=== PATIENT | female | born 1970 | race Caucasian/White ===

== ENCOUNTER 2020-07-19 15:47 | Emergency (ER) | payer OTHER ==
[~2020-07-19 15:47] MED LIST: DOXYCYCLINE HY100 MG PO; DUONEB 2.5-0.5M1 AMP IH; FERROUS SULFAT325 MG PO; MEDROL 4MG DOSEP4 MG PO; PROTONIX40 MG PO
[2020-07-19] MEDS ORDERED: NAPROXEN500 MG PO (17:54)
== END 2020-07-19 18:36 | disposition home or self-care (01) ==
LOC: FER 15:47
DX: S09.90XA Unspecified injury of head, initial encounter (principal); S40.012A Contusion of left shoulder, initial encounter; S30.1XXA Contusion of abdominal wall, initial encounter; M54.2 Cervicalgia; M25.551 Pain in right hip; J44.9 Chronic obstructive pulmonary disease, unspecified; F17.290 Nicotine dependence, other tobacco product, uncomplicated; Z79.899 Other long term (current) drug therapy; V22 Motorcycle rider injured in collision with two- or three-wheeled motor vehicle; Y92.410 Unspecified street and highway as the place of occurrence of the external cause; Z23 Encounter for immunization
CPT/HCPCS: 70450; 72125; 73030; 90471; 90715; 96372; J1100; J1885

== ENCOUNTER 2021-09-26 18:31 | Emergency (ER) | payer OTHER ==
[~2021-09-26 18:31] MED LIST changes: +NAPROXEN500 MG PO
[2021-09-26 19:06] LABS: BASOPHIL 0.3 % (0-2); HCT 45.7 % (37.0-47.0); HGB 14.5 g/dl (12.5-16.0); LYMPHOCYTE 32.6 % (15-48); MCH 29.9 pg (25.0-31.0); MCHC 31.7 g/dL (32.0-36.0); MCV 94.2 fL (78.0-100.0); MPV 10.3 fL (6.0-9.5); NEUTROPHIL 54.7 % (41-80); NRBC 0; PLT 301 K/uL (150-400); RBC 4.85 M/uL (4.20-5.40); WBC 7.1 K/uL (4.0-10.5)
[2021-09-26 19:16] LABS: INR 1.02 (0.9-1.2); PROTHROMBIN TIME 12.8 SECONDS (11.8-13.4); PTT 26.4 SECONDS (24.4-34.7)
[2021-09-26 19:37] LABS: ALBUMIN 4.1 g/dL (3.4-5.0); BILIRUBIN - TOTAL 0.2 mg/dL (0.2-1.0); BUN/CREAT RATIO (CALC) 10.6 RATIO; CREATININE 0.66 mg/dL (0.51-0.95); GLOBULIN (CALCULATION) 3.2 g/dL; POTASSIUM 3.5 mmol/L (3.5-5.1); TOTAL PROTEIN 7.3 g/dL (6.4-8.2)
== END 2021-09-26 23:14 | disposition home or self-care (01) ==
LOC: FER 18:31
PROVIDERS: Emergency Medicine
DX: R07.89 Other chest pain (principal); I25.10 Atherosclerotic heart disease of native coronary artery without angina pectoris; J44.9 Chronic obstructive pulmonary disease, unspecified; Z79.82 Long term (current) use of aspirin; Z79.899 Other long term (current) drug therapy
CPT/HCPCS: 36415; 71045; 71275; 80053; 84484; 85025; 85379; 85610; 85730; 93005; J7030; Q9967